=== PATIENT | female | born 1965 | race Caucasian/White ===

== ENCOUNTER 2017-06-09 08:47 | Emergency (ER) | payer OTHER ==
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
[2017-06-09 11:19] VITALS: BP 152/88
== END 2017-06-09 11:19 | disposition home or self-care (01) ==
LOC: ER 08:47
DX: S20.212A Contusion of left front wall of thorax, initial encounter (principal); S09.90XA Unspecified injury of head, initial encounter; R51 Headache; R07.81 Pleurodynia; M54.89 Other dorsalgia; Y04.2XXA Assault by strike against or bumped into by another person, initial encounter; Y92.199 Unspecified place in other specified residential institution as the place of occurrence of the external cause; Y99.0 Civilian activity done for income or pay; F17.210 Nicotine dependence, cigarettes, uncomplicated; Z71.6 Tobacco abuse counseling
CPT/HCPCS: 70450; 99284